=== PATIENT | female | born 1995 | race Caucasian/White ===

== ENCOUNTER 2022-03-14 22:32 | Emergency (ER) | payer MEDICAID, OTHER ==
[~2022-03-14] VITALS: Ht 162.6 cm; Wt 105.9 kg
[2022-03-14 22:48] VITALS: BP 128/75
[2022-03-15] MEDS ORDERED: PREDNISONE 20MG TABLET PO ONE (02:45)
[2022-03-15] MEDS ORDERED: DIPHENHYDRAMINE 50MG/ML VIAL IM PRN (02:45)
[2022-03-15] MEDS ORDERED: B50 MT (04:57)
[2022-03-15] MEDS ORDERED: P50 MT (04:57)
== END 2022-03-15 05:36 | disposition home or self-care (01) ==
LOC: ER 22:32
DX: L50.0 Allergic urticaria (principal); Z90.49 Acquired absence of other specified parts of digestive tract
CPT/HCPCS: 96372; 99283; J1200; J7512

== ENCOUNTER 2024-06-03 07:23 | Emergency (ER) | payer OTHER ==
[~2024-06-03] VITALS: Ht 162.6 cm; Wt 100.0 kg
[~2024-06-03 07:23] MED LIST: B50 MT; P50 MT
[2024-06-03 07:26] VITALS: O2SAT 98
[2024-06-03 07:30] VITALS: BP 108/70; PULSE 97; RESP 16; TEMP 98.4; O2SAT 99
[2024-06-03] MEDS ORDERED: IBUP-2029 MT (09:35)
[2024-06-03] MEDS ORDERED: METH-653 MT (09:35)
[2024-06-03 10:04] LABS: CLARITY URINE CLOUDY (CLEAR); COLOR URINE YELLOW (YELLOW); GLUCOSE URINE NEGATIVE (NEGATIVE); KETONES URINE NEGATIVE (NEGATIVE); LEUKOCYTE ESTERASE URINE 2+ (NEGATIVE); NITRITE URINE NEGATIVE (NEGATIVE); OCCULT BLOOD URINE NEGATIVE (NEGATIVE); PROTEIN URINE NEGATIVE (NEGATIVE); SPECIFIC GRAVITY URINE 1.021 (1.005-1.030)
[2024-06-03 11:52] LABS: SQUAMOUS EPITHELIAL CELL URINE 2+ /lpf (RARE/1+)
[2024-06-03 11:53] LABS: BACTERIA URINE 2+
[2024-06-03 11:54] LABS: RBC URINE NONE SEEN /hpf (0-2); WBC URINE 0-2 /hpf (0-2)
== END 2024-06-03 11:18 | disposition home or self-care (01) ==
LOC: ER 07:25
DX: S33.5XXA Sprain of ligaments of lumbar spine, initial encounter (principal); Z90.49 Acquired absence of other specified parts of digestive tract; Z98.890 Other specified postprocedural states; Z79.899 Other long term (current) drug therapy; X58.XXXA Exposure to other specified factors, initial encounter; Y93.89 Activity, other specified; Y92.89 Other specified places as the place of occurrence of the external cause; Y99.8 Other external cause status
CPT/HCPCS: 81003; 81025; 99283; Z7610 ×2